=== PATIENT | female | born 1965 | race Native Hawaiian/Other Pacific Islander ===

== ENCOUNTER 2016-12-18 13:09 | Outpatient (CLI) | payer OTHER | END 2016-12-18 19:23 | disposition home or self-care (01) | LOC: CT 13:09 | DX: J32.0 Chronic maxillary sinusitis (principal) ==

== ENCOUNTER 2017-02-27 14:27 | Outpatient (CLI) | payer OTHER ==
[2017-02-27 14:40] LABS: PLATELET COUNT 225 K/uL (152-353)
[2017-02-27 16:54] LABS: POTASSIUM 4.1 mmol/L (3.6-5.2); SODIUM 140 mmol/L (136-145)
== END 2017-02-27 15:30 | disposition home or self-care (01) ==
LOC: LABW 14:27
PROVIDERS: Nurse Practitioner Family
DX: Z79.899 Other long term (current) drug therapy (principal); Z51.81 Encounter for therapeutic drug level monitoring
CPT/HCPCS: 36415; 80053; 85027

== ENCOUNTER 2017-04-24 17:18 | Outpatient (CLI) | payer OTHER | END 2017-04-24 19:08 | disposition home or self-care (01) | LOC: RAD 17:18 | DX: R06.02 Shortness of breath (principal) ==

== ENCOUNTER 2018-01-21 14:23 | Outpatient (CLI) | payer OTHER ==
[2018-01-21 14:53] LABS: PLATELET COUNT 271 K/uL (152-353)
[2018-01-21 15:14] LABS: POTASSIUM 4.5 mmol/L (3.6-5.2)
== END 2018-01-21 22:56 | disposition home or self-care (01) ==
LOC: LABW 14:23
PROVIDERS: Internal Medicine
DX: E11.9 Type 2 diabetes mellitus without complications (principal); I10 Essential (primary) hypertension
CPT/HCPCS: 36415; 80053; 82043; 82306; 82570; 83036; 84443; 85027

== ENCOUNTER 2018-02-06 16:06 | Outpatient (CLI) | payer OTHER ==
[2018-02-06 16:37] LABS: PLATELET COUNT 282 K/uL (152-353)
[2018-02-06 16:38] LABS: POTASSIUM 3.4 mmol/L (3.6-5.2)
== END 2018-02-06 22:07 | disposition home or self-care (01) ==
LOC: LABW 16:06
PROVIDERS: Nurse Practitioner Family
DX: B35.4 Tinea corporis (principal)
CPT/HCPCS: 36415; 80053; 85027

== ENCOUNTER 2018-08-26 12:31 | Outpatient (CLI) | payer OTHER ==
[2018-08-26 12:49] LABS: PLATELET COUNT 290 K/uL (152-353)
[2018-08-26 13:11] LABS: POTASSIUM 5.3 mmol/L (3.6-5.2)
== END 2018-08-26 22:19 | disposition home or self-care (01) ==
LOC: LABW 12:31
PROVIDERS: Nurse Practitioner Family
DX: B35.4 Tinea corporis (principal)
CPT/HCPCS: 36415; 80053; 85027